=== PATIENT | male | born 1995 | race Caucasian/White ===

== ENCOUNTER 2020-08-04 14:20 | Emergency (ER) | payer OTHER ==
[~2020-08-04] VITALS: Ht 152.4 cm; Wt 99.8 kg
[2020-08-04] MEDS ORDERED: KETO10TA2 PO (17:22)
== END 2020-08-04 17:41 | disposition home or self-care (01) ==
LOC: ER 14:20
DX: S05.11XA Contusion of eyeball and orbital tissues, right eye, initial encounter (principal); Y04.2XXA Assault by strike against or bumped into by another person, initial encounter; Y93.89 Activity, other specified; Y92.488 Other paved roadways as the place of occurrence of the external cause; Y99.8 Other external cause status